=== PATIENT | male | born 1940 | race Caucasian/White ===

== ENCOUNTER 2017-12-03 16:58 | Emergency (ER) | payer MEDICARE ==
[2017-12-03 17:42] LABS: BASOPHILS 0.6 % (0-2); EOSINOPHILS 2.4 % (0-7); HEMOGLOBIN 14.4 g/dL (13.5-17.5); IMMATURE GRANULOCYTES 0.2 % (0-5); LYMPHOCYTES 18.7 % (15-50); MCH 30.5 pg (26.0-34.0); MCHC 34.3 g/dL (31.0-37.0); MEAN PLATELET VOLUME 9.7 fL (7.4-10.4); MONOCYTES 8.5 % (2-11); NEUTROPHILS 69.6 % (40-80); PLATELET COUNT 272 10x3/uL (130-400); RBC 4.72 10x6/uL (4.20-6.10); RDW 12.9 % (11.5-14.5); WBC 12.4 10x3/uL (4.8-10.8)
[2017-12-03 18:01] LABS: ALBUMIN 3.8 g/dL (3.4-5.0); ALKALINE PHOSPHATASE 82 U/L (46-116); ALT (SGPT) 35 U/L (10-68); CALC OSMOLALITY 260 mosm/kg (275-300); CALCIUM 9.1 mg/dL (8.5-10.1); CHLORIDE - SERUM 95 mmol/L (98-107); GLUCOSE 82 mg/dL (74-106); PROTEIN - SERUM 7.8 g/dL (6.4-8.2); SODIUM 131 mmol/L (136-145); UREA NITROGEN 11 mg/dL (7-18); eGFR NON AFRICAN AMERICAN 77 mL/min (90-120)
== END 2017-12-03 19:36 | disposition home or self-care (01) ==
LOC: D.ER 16:58
PROVIDERS: Emergency Medicine
DX: J20.9 Acute bronchitis, unspecified (principal); J06.9 Acute upper respiratory infection, unspecified; I10 Essential (primary) hypertension